=== PATIENT | male | born 1950 | race African-American/Black ===

== ENCOUNTER 2024-05-19 11:49 | Emergency (ER) | payer MEDICARE, OTHER, SELFPAY ==
[2024-05-19] MEDS ORDERED: predniSONE 20 MG TAB ONE (13:24)
== END 2024-05-19 13:44 | disposition home or self-care (01) ==
LOC: NAV ERS 11:49
DX: M70.52 Other bursitis of knee, left knee (principal); I13.0 Hypertensive heart and chronic kidney disease with heart failure and stage 1 through stage 4 chronic kidney disease, or unspecified chronic kidney disease; I50.9 Heart failure, unspecified; N18.9 Chronic kidney disease, unspecified; E78.5 Hyperlipidemia, unspecified; J44.9 Chronic obstructive pulmonary disease, unspecified
CPT/HCPCS: 99283; J7512